=== PATIENT | male | born 1960 | race Caucasian/White ===

== ENCOUNTER 2024-06-06 09:00 | Outpatient (CLI) | payer OTHER, SELFPAY | END 2024-06-06 09:01 | disposition home or self-care (01) | PROVIDERS: PCP Registered Nurse; Visit Provider Registered Nurse | DX: Z13.228 Encounter for screening for other metabolic disorders (principal); Z13.220 Encounter for screening for lipoid disorders; Z12.5 Encounter for screening for malignant neoplasm of prostate | CPT/HCPCS: 80053; 80061; G0103 ==

== ENCOUNTER 2024-09-21 12:41 | Outpatient (CLI) | payer OTHER, SELFPAY ==
--- OUTSIDE RECORDS SUMMARY | 2024-09-21 12:49 | XMS_ITS | Clinical Summary ---
Author Organization [facility] Address [address] , [address] [place] [address] Phone Care Team Providers Care Front Desk Receptionist Name Role Phone MedRec, MedRec Unavailable Conditions or Problems Problem Name Problem Code Onset Date Status Entry Date Provider Comment Standard Description Annotate Neck pain 83620494 (SNOMED CT) Active Suraj Bravo MD Neck pain Ulnar neuropathy, right 487260265 (SNOMED CT) Active Suraj Bravo MD Ulnar neuropathy Other lesions of median nerve, bilateral upper limbs 593826475 (SNOMED CT) Active Suraj Bravo MD Lesion of median nerve Medications No information available. Medications Administered No information available. Allergies, Adverse Reactions, Alerts No information available. Results Date Name Value Unit Range Flag Description Internal Other: Authorizatio n - OBS [email or web address] Yes Authoriza tion: Release of Information - Authorize [facility] - Payment and Healthcare Operations ROIAUTHOTHER Yes Authoriz ation: Release of Information - Authorize Others/Insurance - Payment and Healthcare Operations HIECONSENT Yes Consent To Release information to the Health Information Exchange (HIE) [email or web address] Yes Authorizat ion: Authorization for [facility] to leave messages, voicemail, send text messages, send emails AUTHRELHCARE Yes Authoriz ation: Release/Retrieval of Information to/from Healthcare Facilities, Pharmacy Benefit Payers and Providers [email or web address] Yes Authoriz ation: Notice of privacy practices AUTHBENEFIT Yes Authoriza tion: Assignment of Benefits and Payment Agreement Internal Other: Verbal Autho rization/Emergency Contact - OBS VERBAL_EMER DONE Verbal au thorization and emergency contact Plan of Care No information available. Procedures Code Procedure Name Date Entry Date CPT-34355 Nerve Conduction 13 or more studies 12/02 CPT-31046 EMG with NCS (5+ muscles) - 2 limbs 12/02 Vital Signs No information available. Immunizations No information available. Advance Directives No information available.
--- OUTSIDE RECORDS SUMMARY | 2024-09-21 12:50 | XMS_ITS | Clinical Summary ---
Author Organization [facility] Address [address] [place] [address] Care Team Providers Care Custodian Manager Name Role Phone Carla Heller NP Unavailable [phone] Carla Heller NP Primary Care Provider Allergies Active Allergy Reactions Criticality Noted Date Comments Nsaids (Non-Steroidal Anti-I nflammatory Drug) GI Upset 02/17/2011 Medications multivitamin (MVI) tablet Take 1 tablet by mouth once daily. 0 3 Active ketoconazole 2% topical (NIZORAL) creamIndications: Seborrhea Apply topically to affected area(s) two times daily. 60 g 3 Active betamethasone dipropionate 0.05% (DIPROSONE 0.05% CREAM) 0.05 % creamIndications: Chronic eczema APPLY TOPICALLY TO THE AFFECTED AREA TWICE DAILY 45 g 4 3 Active triamcinolone (ARISTOCORT; KENALOG) 0.1 % creamIndications: Seborrhea Apply topically to affected area(s) two times daily. 4 Active albuterol HFA (Ventolin HFA) 90 mcg/actuation inhalerIndication s:SOB (shortness of breath) Inhale 2 Puffs by mouth every 4 hours if needed for Shortness Of Breath. 1 Each 4 Active sertraline (ZOLOFT) 100 mg tabletIndications :Anxiety,Depressi on, unspecified depression type TAKE 1 TABLET EVERY DAY 90 Tablet 5 Active Active Problems Problem Noted Date Diagnosed Date Mechanical low back pain 04/15/2023 Neuralgia 04/15/2023 Depression 04/15/2023 Arthritis of carpometacarpal (CMC) joint of left thumb 11/08/2022 Status post total left knee replacement 09/08/19 17 Hypermetropia 04/19/2012 Crohn's disease Overview (08/26/2017): 7 surgerys on colon large intestine removed and some of small intestine used when colostomy was taken down Resolved Problems Problem Noted Date Diagnosed Date Resolved Date Avascular necrosis of bone of ankle 04/15/2023 04/15/2023 Primary osteoarthritis of left knee 04/15/2023 04/15/2023 Hemorrhoids, external 04/15/20232023 Closed fracture of triquetra l (cuneiform) bone of wrist 04/15/2023 04/15/2023 Aseptic necrosis of medial femoral condyle 04/15/2023 04/15/2023 S/P right carpal tunnel and cubital tunnel release - DOS 01/26/2023 - Dr. Britt 03/14/2023 S/P left cubital and carpal tunnel release - DOS 12/29/2022 - Dr. Britt 02/21/2023 04/15/2023 Left carpal tunnel syndrome 12/20/2022 04/15/2023 Cubital tunnel syndrome on left 12/20/2022 04/15/2023 Right carpal tunnel syndrome 12/20/2022 04/15/2023 Cubital tunnel syndrome on right 12/20/2022 04/15/2023 Bilateral carpal tunnel syndrome 11/08/2022 04/15/2023 Diarrhea due to malabsorption 08/31/2017 04/15/2023 Pouchitis 08/31/2017 04/15/2023 Aftercare following left kne e joint replacement surgery 01/15/2015 04/15/2023 Encounters Date Type Department Care Team Description 09/21/2024 1:00 PM CDT Ancillary Procedure [facility] [address] [place] [address] Arrived from Last 3 Months Immunizations Immunization Administration Dates Next Due COVID-19 vaccine (Pfizer-Bio NTech 30mcg/0.3mL) 12YO+ ANA CRISTINA-SUCROSE PF, MDV 05/19/2021 Influenza, IIV3 (Age >=3 years) 02/19/2008 Td, Preservative Free (age >= 7 Years) 7 Tdap 02/06/2024,01/06/2007 Varicella Vaccine 09/18/2018 Family History Medical History Relation Name Comments Osteoarthritis Father Cancer Maternal Grandfather Osteoarthritis Mother Diabetes Paternal Grandfather Cancer Paternal Grandmother uterine Relation Name Status Comments Brother Alive Daughter Alive Father Alive Maternal Grandfather Maternal Grandmother Mother Alive Paternal Grandfather Paternal Grandmother Sister Alive Son Alive Social History Tobacco Use Types Packs/Day Years Used Date Smoking Tobacco: Former Cigarettes Q uit: 03/28/1985 Smokeless Tobacco: Never Tobacco Cessation:Counseling Given: Yes Alcohol Use Standard Drinks/Week Comments Yes 2 (1 standard drink = 0.6 oz pur e alcohol) 6 per week PHQ-2 Answer Date Recorded PHQ-2 TOTAL SCORE 0 04/15/2023 Social Connections Answer Date Recorded Frequency of Communication with Friends and Fami ly Not on file 03/28/2021 Financial Resource Strain Answer Date R ecorded Difficulty of Paying Living Expenses Not on file 03/28/2021 Difficulty of Paying Living Expenses Not on file 03/28/2021 Sex and Gender Information Value Date Recorded Sex Assigned at Male 05/14/2020 10:55 AM OFFICE SERVICES CLERK Legal Sex Male 8:16 AM OFFICE SERVICES CLERK Gender Identity Male 05/14/2020 10:55 AM OFFICE SERVICES CLERK Sexual Orientation Straight 05/14/2020 10 :55 AM OFFICE SERVICES CLERK 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 Not on file Not on 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 Not on file Not on file Obstetrics History Last Filed Vital Signs Vital Sign Reading Time Taken Comments Blood Pressure 119/58 02/06/2024 12:18 PM OFFICE SERVICES CLERK Pulse 69 02/06/2024 12:18 PM OFFICE SERVICES CLERK Temperature 36.3 C (97.4 F) 02/06/2024 12:18 PM OFFICE SERVICES CLERK Respiratory Rate 18 02/06/2024 12:18 PM OFFICE SERVICES CLERK Oxygen Saturation 96% 02/06/2024 12:18 PM OFFICE SERVICES CLERK Inhaled Oxygen Concentration - - Weight 97.1 kg (214 lb) 02/06/2024 12:18 PM OFFICE SERVICES CLERK Height 190.5 cm (6' 3) 04/15/2023 11:18 AM OFFICE SERVICES CLERK Body Mass Index 26.75 04/15/2023 11:18 AM OFFICE SERVICES CLERK Plan of Treatment Upcoming Encounters Date Type Department Care Team (Late st Contact Info) Description 09/21/2024 1:00 PM CDT Ancillary Procedure [facility] [address] [place] [address] Arrived Health Maintenance Due Date Last Done Comments Pneumococcal series for age 50+ (1 of 1 - PCV) 2011 Zoster (shingles) series for age 50+ (1 of 2) 2011 COVID-19 vaccine series ( season) 2023 05/19/2021, 11/20/2020, 10/30/2020 BMI (ht and wt on same day) for age 18+ 04/15/2024 04/15/2023, 12/27/2022, 04/06/2022, Additional history exists Depression screening for age 12+ 04/15/2024 04/15/2023, 04/15/2023, 12/27/2022, Additional history exists Influenza Vaccine (Season Ended) 2024 02/19/2008 Lipids for age 45-75 05/24/2027 05/24/2022, 05/19/2021, 04/01/2020, Additional history exists Tetanus booster 02/05/2034 02/06/2024, 06/0 04/2016, 01/06/2007 RSV vaccine for adults or (1 - 1-dose 75+ series) 2036 Colonoscopy through age 75 Discontinued 07/25 (Completed outside of [facility]) Hepatitis C screening for age 18-79 Completed 04/01/2020 HIV for age 15-65 Completed 05/24/2022 Tdap Completed 02/06/2024, 01/06/2007 Hepatitis B series for 19+ Aged Out N o longer eligible based on patient's age to complete this topic Medical Devices Implanted Type Area Chrome Plater Helper Device Identifier Shelf Expiration Date Model / Serial / Lot Cement Simplex W/ Tobramycin - [id number] Implanted:Qty: 2 on 01/15/2015 by Shankar Persaud MD at [facility] Left: Knee D-VANNESSA 01/26/2016 [id number] / / [id number] - [id number] Implanted:Qty: 1 on 01/15/2015 by Shankar Persaud MD at [facility] Left: Knee [employer] 06/25/2024 [id number] / / [id number] Description:Mark Nonporou s Tibial Baseplate [id number] - [id number] Implanted:Qty: 1 on 01/15/2015 by Shankar Persaud MD at [facility] Left: Knee [employer] 05/25/2024 [id number] / / [id number] Description:Hca II Resur facing Patellar Component [id number] - [id number] Implanted:Qty: 1 on 01/15/2015 by Shankar Persaud MD at [facility] Left: Knee [employer] 12/26/2023 [id number] / / [id number] Description:Cruciate Retaini ng Journey II CR Oxinium Femoral Component [id number] - [id number] Implanted:Qty: 1 on 01/15/2015 by Shankar Persaud MD at [facility] Left: Knee [employer] 07/26/2023 [id number] / / [id number] Description:Journay II CR, X LPE A/P 56mm M/L 81mm articular insert 1/2 Tibial Augment And Screws Cemented Implanted:Qty: 1 on 09/07/2016 by José Parekh MD at [facility] Left: Knee [employer] 03/30/2020 / / [id number] 1/2 Tibial Augment And Screws Cemented Implanted:Qty: 1 on 09/07/2016 by José Parekh MD at [facility] Left: Knee [employer] 03/30/2020 / / [id number] Stem Extension Straight Femoral And Tibial Cemented Implanted:Qty: 1 on 09/07/2016 by José Parekh MD at [facility] Left: Knee [employer] 03/29/2020 / / [id number] Stem Extension Straight And Tibial Cemented Implanted:Qty: 1 on 09/07/2016 by José Parekh MD at [facility] Left: Knee [employer] 07/12/2021 / / [id number] Femoral Component And Screw Constrained Condylar Cemented Implanted:Qty: 1 on 09/07/2016 by Joés Parekh MD at [facility] Left: Knee [employer] 12/14/2020 / / [id number] Femoral Augment And Screw Implanted:Qty: 1 on 09/07/2016 by José Parekh MD at [facility] Left: Knee [employer] 03/23/2020 / / [id number] Femoral Augment And Screw Posterior Cemented Implanted:Qty: 1 on 09/07/2016 by José Parekh MD at [facility] Left: Knee [employer] 03/23/2020 / / [id number] Femoral Aug Block And Screw Distal Cemented Implanted:Qty: 1 on 09/07/2016 by José Parekh MD at [facility] Left: Knee [employer] 07/23/2021 / / [id number] Femoral Aug Block And Screw Implanted:Qty: 1 on 09/07/2016 by José Parekh MD at [facility] Left: Knee [employer] 06/03/2020 / / [id number] Tibial Insert And Screw Constrained Condylar Implanted:Qty: 1 on 09/07/2016 by José Parekh MD at [facility] Left: Knee [employer] 04/04/2023 / / [id number] Simplex P Bone Cement Radiopaque Implanted:Qty: 1 on 09/07/2016 by José Parekh MD at [facility] Left: Knee [employer] 03/27/2018 / / [id number] Peg Patella Cemented Implanted:Qty: 1 on 09/07/2016 by José Parekh MD at [facility] Left: Knee [employer] 07/19/2021 / / [id number] Simplex P Bone Cement Radiopaque Implanted:Qty: 2 on 09/07/2016 by José Parekh MD at [facility] Left: Knee [employer] 05/25/2018 / / [id number] Simplex P Bone Cement Radiopaque Implanted:Qty: 2 on 09/07/2016 by José Parekh MD at [facility] Left: Knee [employer] 11/25/2018 / / [id number] Tibial Cone Metaphyseal Implanted:Qty: 1 on 09/07/2016 by José Parekh MD at [facility] Left: Knee [employer] 05/22/2026 / / [id number] Tibial Tray Cemented Implanted:Qty: 1 on 09/07/2016 by José Parekh MD at [facility] Left: Knee [employer] 05/26/2026 / / [id number] Explanted Type Area Chrome Plater Helper Device Identifier Shelf Expiration Date Model / Serial / Lot Tibial Insert And Screw Constrained Condylar Implanted:Qty: 1 Explanted:Qty: 1 on 09/07/2016 at [facility] Left: Knee [employer] 04/04/2023 / / [id number] Procedures Procedure Name Priority Date/Time Associated Diagnosis Comments LC HIV-1/O/2, 4TH GENERATION Routine 05/24/2022 9:44 AM OFFICE SERVICES CLERK Screening for HIV (human immunodeficiency virus) LC LIPID PANEL AND CHOL/HDL RATIO Routine 05/24/2022 9:44 AM OFFICE SERVICES CLERK Lipid screening ANTI HCV Routine 04/01/2020 12:01 PM OFFICE SERVICES CLERK Encounter for hepatitis C screening test for low risk patient from Last 3 Months or Most Recently Relevant to Health Maintenance Results * (ABNORMAL) LC LIPID PANEL AND CHOL/HDL RATIO (05/24/2022 9:44 AM OFFICE SERVICES CLERK) Cholesterol, Total 216(H) 100 - 199 mg/dL 05/26/2022 12:08 PM OFFICE SERVICES CLERK [facility] ([facility]) Triglycerides 111 0 - 149 mg/dL 05/26/2022 12:08 PM OFFICE SERVICES CLERK [facility] ([facility]) HDL Cholesterol 63 >39 mg/dL 12:08 PM [facility] ([facility]) VLDL Cholesterol Shashi 20 5 - 40 mg/dL 05/26/2022 12:08 PM [facility] ([facility]) LDL Chol Calc ([facility]) 133(H) 0 - 99 mg/dL 05/26/2022 12:08 PM [facility] ([facility]) T. Chol/HDL Ratio 3.4 0.0 - 5.0 ratio 05/26/2022 12:08 PM [facility] ([facility]) Comment: T. Chol/HDL Ratio Men Women 1/2 Avg.Risk 3.4 3.3 Avg.Risk 5.0 4.4 2X Avg.Risk 9.6 7.1 3X Avg.Risk 23.4 11.0 Blood BLOOD SPECIMEN / Unknown Venipuncture / Unknown 05/24/2022 9:44 AM OFFICE SERVICES CLERK 05/24/2022 9:46 AM OFFICE SERVICES CLERK Narrative [facility] ([facility]) - 05/26/2022 12:08 PM OFFICE SERVICES CLERK Performed at: [address] [place] [id number] French Teacher: Rakesh Milligan MD, Phone: [phone] Carla Heller NP SEND OUTS Final Result [facility] ([facility]) [facility] [place] [address], * HIV-1/O/2, 4TH GENERATION (05/24/2022 9:44 AM OFFICE SERVICES CLERK) HIV Scr 4th Gen Non Reactive Non Reactive 05/26/2022 2:08 PM [facility] ([facility]) Comment: HIV Negative HIV-1/HIV-2 antibodies and HIV-1 p24 antigen were NOT detected. There is no laboratory evidence of HIV infection. Blood BLOOD SPECIMEN / Unknown Venipuncture / Unknown 05/24/2022 9:44 AM OFFICE SERVICES CLERK 05/24/2022 9:46 AM OFFICE SERVICES CLERK [facility]ative [facility] - 05/26/2022 2:08 PM OFFICE SERVICES CLERK Performed at: [address] [place] [id number] French Teacher: Rakesh Milligan MD, Phone: [phone] Carla Heller DISBURSING AGENT LABORATORY Final Result [facility] ([facility]) [facility] [place] [address], * ANTI HCV (04/01/2020 12:01 PM OFFICE SERVICES CLERK) HEPATITIS C ANTIBODY Non-React laura Non-React laura 04/01/2020 9:01 PM OFFICE SERVICES CLERK [facility] Comment:Antibodies to HCV no t detected; does not exclude the possibility of exposure to HCV. Blood BLOOD SPECIMEN / Unknown Venipuncture / Unknown 04/01/2020 12:01 PM OFFICE SERVICES CLERK 04/01/2020 12:04 PM OFFICE SERVICES CLERK Carla Heller DISBURSING AGENT SEND OUTS Final Result [facility] [address] [place] [address], [place] from Last 3 Months or Most Recently Relevant to Health Maintenance Insurance [facility] [employer] OF [place] [employer] GOLD CHOICE MR * Guarantor: REUBEN NEGRON Account Type Relation to Patient Date of Phone Billing Address [address] [address] [place] [address] Advance Directives Documents on File Type Date Recorded Patient Phthalic Acid Purifier Expl anation Healthcare Directive 01/23/2024 024 * Full Code (Latest Code Status on File) Date Activated Date Inactivated Comments 01/26/2023 6:28 AM 01/26/2023 1:31 PM Question Answer Comments Code Status Discussion: Reviewed Preferences * Full Code Date Activated Date Inactivated Comments 12/29/2022 6:29 AM 12/29/2022 2:42 PM Question Answer Comments Code Status Discussion: Reviewed Preferences * Full Code Date Activated Date Inactivated Comments 09/07/2016 2:03 PM 09/10/2016 2:25 PM * Full Code Date Activated Date Inactivated Comments 09/07/2016 7:48 AM 09/07/2016 2:03 PM * Full Code Date Activated Date Inactivated Comments 01/15/2015 9:44 AM 01/17/2015 4:57 PM Care Teams Custodian Manager Relationship Specialty Start Date End Date Carla Heller NP [address] [place] [address] PCP - General Nurse Practitioner - Family 03/26/20 Carla Heller NP [address] [facility] [place] [address] Family Practice 04/14/12
--- OUTSIDE RECORDS SUMMARY | 2024-09-21 12:58 | XMS_ITS | Clinical Summary ---
Author Organization [facility] Address [address] , [address] [place] [address] Phone Care Team Providers Care Asphalt Patcher Name Role Phone MedRec, MedRec Unavailable Conditions or Problems Problem Name Problem Code Onset Date Status Entry Date Provider Comment Standard Description Annotate Neck pain 38685648 (SNOMED CT) Active Suraj Bravo MD Neck pain Ulnar neuropathy, right 771383917 (SNOMED CT) Active Suraj Bravo MD Ulnar neuropathy Other lesions of median nerve, bilateral upper limbs 248633470 (SNOMED CT) Active Suraj Bravo MD Lesion [...] Procedures Code Procedure Name Date Entry Date CPT-40185 Nerve Conduction 13 or more studies 12/02 CPT-81632 EMG with NCS (5+ muscles) - 2 limbs 12/02 Vital Signs No information available. Immunizations No information available. Advance Directives No information available.
--- OUTSIDE RECORDS SUMMARY | 2024-09-21 14:05 | XMS_ITS | Clinical Summary ---
Author Organization [facility] Address [address] [facility] [facility] , [address] [place] [address] Phone Care Team Providers Care Senior Environmental Scientist Name Role Phone MedRec, MedRec Unavailable Conditions or Problems Problem Name Problem Code Onset Date Status Entry Date Provider Comment Standard Description Annotate Neck pain 09800093 (SNOMED CT) Active Suraj Bravo MD Neck pain Ulnar neuropathy, right 820825619 (SNOMED CT) Active Suraj Bravo MD Ulnar neuropathy Other lesions of median nerve, bilateral upper limbs 250011554 (SNOMED CT) Active Suraj Bravo MD Lesion [...] Procedures Code Procedure Name Date Entry Date CPT-25002 Nerve Conduction 13 or more studies 12/02 CPT-69677 EMG with NCS (5+ muscles) - 2 limbs 12/02 Vital Signs No information available. Immunizations No information available. Advance Directives No information available.
--- OUTSIDE RECORDS SUMMARY | 2024-09-22 00:24 | XMS_ITS | Clinical Summary ---
Author Organization [facility] Address [address] [facility] , [address] [place] [address] Phone Care Team Providers Care Flyer Maker Name Role Phone MedRec, MedRec Unavailable Conditions or Problems Problem Name Problem Code Onset Date Status Entry Date Provider Comment Standard Description Annotate Neck pain 82029440 (SNOMED CT) Active Suraj Bravo MD Neck pain Ulnar neuropathy, right 749369646 (SNOMED CT) Active Suraj Bravo MD Ulnar neuropathy Other lesions of median nerve, bilateral upper limbs 208607569 (SNOMED CT) Active Suraj Bravo MD Lesion [...] Procedures Code Procedure Name Date Entry Date CPT-88305 Nerve Conduction 13 or more studies 12/02 CPT-14936 EMG with NCS (5+ muscles) - 2 limbs 12/02 Vital Signs No information available. Immunizations No information available. Advance Directives No information available.
--- OUTSIDE RECORDS SUMMARY | 2024-09-22 00:25 | XMS_ITS | Clinical Summary ---
Author Organization [facility] Address [address] [place] [id number] Care Team Providers Care Warehousing Technician Name Role Phone Carla Heller NP Unavailable [phone] Carla Heller NP Primary Care Provider [phone] Allergies Active Allergy Reactions Criticality Noted Date [...] Description 09/21/2024 1:00 PM CDT Ancillary Procedure [facility] [address] [place] [address] Arrived from Last 3 Months Immunizations Immunization [...] Sex Assigned at Male 05/14/2020 10:55 AM CUSTOMER SERVICE ANALYST Legal Sex Male 8:16 AM CUSTOMER SERVICE ANALYST Gender Identity Male 05/14/2020 10:55 AM CUSTOMER SERVICE ANALYST Sexual Orientation Straight 05/14/2020 10 :55 AM CUSTOMER SERVICE ANALYST 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 Not on file Not on 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 Not on file Not on file Obstetrics History Last Filed Vital Signs Vital Sign Reading Time Taken Comments Blood Pressure 119/58 02/06/2024 12:18 PM CUSTOMER SERVICE ANALYST Pulse 69 02/06/2024 12:18 PM CUSTOMER SERVICE ANALYST Temperature 36.3 C (97.4 F) 02/06/2024 12:18 PM CUSTOMER SERVICE ANALYST Respiratory Rate 18 02/06/2024 12:18 PM CUSTOMER SERVICE ANALYST Oxygen Saturation 96% 02/06/2024 12:18 PM CUSTOMER SERVICE ANALYST Inhaled Oxygen Concentration - - Weight 97.1 kg (214 lb) 02/06/2024 12:18 PM CUSTOMER SERVICE ANALYST Height 190.5 cm (6' 3) 04/15/2023 11:18 AM CUSTOMER SERVICE ANALYST Body Mass Index 26.75 04/15/2023 11:18 AM CUSTOMER SERVICE ANALYST Plan of Treatment Health Maintenance Due Date Last Done Comments [...] age 76 Discontinued 07/25 ([facility]) Hepatitis C screening for age 18-79 Completed 04/01/2020 HIV for age 15-65 Completed 05/24/2022 Tdap Completed 02/06/2024, 01/06/2007 Hepatitis B series for 19+ Aged Out N o longer eligible based on patient's age to complete this topic Medical Devices Implanted Type Area Plant Anatomist Device Identifier Shelf Expiration Date Model / Serial / Lot Cement Simplex W/ Tobramycin - [id number] Implanted:Qty: 2 on 01/15/2015 by Shankar Persaud MD at [facility] Left: Knee D-VANNESSA 01/26/2016 6197-9-010 / / [id number] - [id number] Implanted:Qty: 1 on 01/15/2015 by Shankar Persaud MD at [facility] Left: Knee [employer] 06/25/2024 [id number] / / [id number] Description:Cindydagmar Nonporou s Tibial Baseplate [id number] - [id number] Implanted:Qty: 1 on 01/15/2015 by Shankar Perasud MD at [facility] Left: Knee [employer] 05/25/2024 [id number] / / [id number] Description:Cha II Resur facing Patellar Component [id number] - [id number] Implanted:Qty: 1 on 01/15/2015 by Shankar Persaud MD at [facility] Left: Knee [employer] 12/26/2023 [id number] / / [id number] Description:Cruciate Retaini ng Journey II CR Oxinium Femoral Component [id number] - [id number] Implanted:Qty: 1 on 01/15/2015 by Shankar Persaud MD at [facility] Left: Knee [employer] 07/26/2023 [id number] / / [id number] Description:Journay II CR, X LPE A/P 56mm M/L 81mm articular insert 1/2 Tibial Augment And Screws Cemented Implanted:Qty: 1 on 09/07/2016 by José Parekh MD at [facility] Left: Knee [employer] 03/30/2020 / / [id number] 1/2 Tibial Augment And Screws Cemented Implanted:Qty: 1 on 09/07/2016 by José Parekh MD at [facility] Left: Knee [employer] 03/30/2020 / / [id number] Stem Extension Straight Femoral And Tibial Cemented Implanted:Qty: 1 on 09/07/2016 by José Parekh MD at [facility] Left: Knee [employer] 03/29/2020 / / [id number] Stem Extension Straight And Tibial Cemented Implanted:Qty: 1 on 09/07/2016 by José Parekh MD at [facility] Left: Knee [employer] 07/12/2021 / / [id number] Femoral Component And Screw Constrained Condylar Cemented Implanted:Qty: 1 on 09/07/2016 by José Parekh MD at [facility] Left: Knee [employer] 12/14/2020 / / [id number] Femoral Augment And Screw Implanted:Qty: 1 on 09/07/2016 by José Parekh MD at [facility] Left: Knee [employer] 03/23/2020 / / [id number] Femoral Augment And Screw Posterior Cemented Implanted:Qty: 1 on 09/07/2016 by José Parekh MD at [facility] Left: Knee [employer] 03/23/2020 / / [id number] Femoral Aug Block And Screw Distal Cemented Implanted:Qty: 1 on 09/07/2016 by José Parekh MD at [facility] Left: Knee [employer] 07/23/2021 / / [id number] Femoral Aug Block And Screw Implanted:Qty: 1 on 09/07/2016 by José Parekh MD at [facility] Left: Knee [employer] 06/03/2020 / / [id number] Tibial Insert And Screw Constrained Condylar Implanted:Qty: 1 on 09/07/2016 by José Parekh MD at [facility] Left: Knee [employer] 04/04/2023 / / [id number] Simplex P Bone Cement Radiopaque Implanted:Qty: 1 on 09/07/2016 by José Parekh MD at [facility] Left: Knee [employer] 03/27/2018 / / [id number] Peg Patella Cemented Implanted:Qty: 1 on 09/07/2016 by José Parekh MD at [facility] Left: Knee [employer] 07/19/2021 / / [id number] Simplex P Bone Cement Radiopaque Implanted:Qty: 2 on 09/07/2016 by José Parekh MD at [facility] Left: Knee [employer] 05/25/2018 / / [id number] Simplex P Bone Cement Radiopaque Implanted:Qty: 2 on 09/07/2016 by José Parekh MD at [facility] Left: Knee [employer] 11/25/2018 / / [id number] Tibial Cone Metaphyseal Implanted:Qty: 1 on 09/07/2016 by José Parekh MD at [facility] Left: Knee [employer] 05/22/2026 / / [id number] Tibial Tray Cemented Implanted:Qty: 1 on 09/07/2016 by José Parekh MD at [facility] Left: Knee [employer] 05/26/2026 / / [id number] Explanted Type Area Plant Anatomist Device Identifier Shelf Expiration Date Model / Serial / Lot Tibial Insert And Screw Constrained Condylar Implanted:Qty: 1 Explanted:Qty: 1 on 09/07/2016 at [facility] Left: Knee [employer] 04/04/2023 / / [id number] Procedures Procedure Name Priority Date/Time Associated Diagnosis Comments ECHO TTE COMPLETE WO CONTRAST Routine 09/21/2024 1:40 PM CDT Cardiac murmur, unspecified LC HIV-1/O/2, 4TH GENERATION Routine 05/24/2022 9:44 AM CUSTOMER SERVICE ANALYST Screening for HIV (human immunodeficiency virus) LC LIPID PANEL AND CHOL/HDL RATIO Routine 05/24/2022 9:44 AM CUSTOMER SERVICE ANALYST Lipid screening ANTI HCV Routine 04/01/2020 12:01 PM CUSTOMER SERVICE ANALYST Encounter for hepatitis C screening test for low risk patient from Last 3 Months or Most Recently Relevant to Health Maintenance Results * ECHO TTE COMPLETE WO CONTRAST (09/21/2024 1:40 PM CDT) AORTIC VALVE MEAN PG 12 mmHg EJECTION FRACTION 75 % PEAK TR VELOCITY 2.5 m/s LVEDD 5.4 cm EJECTION FRACTION 60 - 65% Anatomical Region Laterality Modality Ultrasound 09/21/2024 12:5 2 PM CDT Narrative 09/21/2024 2:16 PM CDT ECHOCARDIOGRAM GROVER BENITEZ : 1960 64 years Study Date: 09/21/2024 12:52:49 PM Gender: M BP: 132/69 mmHg Height: 196.00 cm BSA: 2.31 m Weight: 98.00 kg Tech: DEXTER Referring MD: DULCE REMY Site: [facility] Reading Location: Mobile-OP Patient Location: Outpatient. Procedure: 2D, Color Doppler and Spectral Doppler. Indication for study: Murmur Cardiac Rhythm: Regular.Study quality: Fair. Imaging limitations: This study was subject to imaging limitations due to body habitus and a prominent lung artifact. Final Impressions: 1. Normal LV size, normal wall thickness, normal function with an estimated EF of 60 - 65%. 2. Right ventricular cavity size is normal, global systolic RV function is normal. 3. The aortic valve is probably bicuspid, no stenosis and moderate to severe regurgitation. Eccentric jet. 4. Mildly dilated ascending aorta, diameter of 4.3 cm (upper limit of normal for age, sex, and BSA is 4.2 cm*), Height Index 2.19. Comparison There are no prior studies on this patient for comparison purposes. Chamber Sizes and Function Normal left ventricular size, normal wall thickness, normal global systolic function with an estimated EF of 60 - 65%. No resting regional wall motion abnormality visualized. Left atrial size is normal. Right ventricular cavity size is normal, global systolic RV function is normal. The right atrium is normal. Right atrial volume index is 26 ml/m . Right atrial area is 20 cm . The pulmonary artery is not well visualized. The sinus of Valsalva is normal sized. The ascending aorta is dilated. Valves, RV Pressures and Diastolic Function The aortic valve is probably bicuspid, no stenosis and moderate to severe regurgitation. The mitral valve is normal in structure, trace mitral regurgitation. Indeterminate pattern of LV diastolic filling. The tricuspid valve is normal in structure, trace tricuspid regurgitation. The tricuspid regurgitant velocity is 2.5 m/s, the estimated right ventricular systolic pressure is 26 mmHg plus right atrial pressure. The pulmonic valve is not well visualized. Trace pulmonary regurgitation. Masses, Effusion, Shunts There is no pericardial effusion. The inferior vena cava is dilated, respiratory size variation greater than 50%. No left to right shunting was detected by limited color flow Doppler interrogation of the interatrial septum. MEASUREMENTS AND CALCULATIONS 2-D Measurements and LV Function: LVID (d) 5.4 cm LV FS% (2D) 37 % LVID (s) 3.4 cm LVOT diameter 2.6 cm IVS (d) 1.0 cm HR 60 bpm LVPW (d) 1.1 cm LA Vol index 22 ml/m2 Ao Sinus 3.5 cm RA Vol index 26 ml/m2 Ao Sinus ULN 4.2 cm * RA area 20 cm Asc Ao 4.3 cm RV Basal Diam 3.9 cm Asc Ao ULN 4.2 cm * RV Mid Diam 2.4 cm LA 3.8 cm * Input BSA outside of range, reported values correspond to BSA = 2.1 Diastology: Mitral Tissue Doppler E Peak 0.9 m/s e', Septum 0.16 m/s A Peak 0.7 m/s e', Lateral 0.11 m/s E/A 1.4 E/e' Average 6.85 DT 279 msec Aortic Valve: Vmax 2.4 m/s MICHAEL (V) 2.87 cm AI P 1/2 329 msec VTI 0.54 m MICHAEL (I) 2.89 cm LVOT V max 1.3 m/s Max PG 23 mmHg LVOT VTI 0.29 m Mean PG 12 mmHg SV 156 ml Dim Index 0.54 SV index 67 ml/m CO 9.3 l/min CI 4.0 l/min/m Mitral Valve: MVA 2.7 cm MV P 1/2 81 msec Tricuspid Valve and estimated PA pressures: TR Vmax 2.5 m/s TAPSE 3.3 cm TR maxG 26 mmHg . This study was interpreted by an [facility] accredited facility. CC: [facility] (formerly [facility]) [facility]. Final Procedure Note Wan Sneed MD - 09/21/2024 ECHOCARDIOGRAM GROVER BENITEZ : 1960 64 years Study Date: 09/21/2024 12:52:49 PM Gender: M BP: 132/69 mmHg Height: 196.00 cm BSA: 2.31 m Weight: 98.00 kg Tech: [facility] Referring MD: DULCE REMY Site: [facility] Reading Location: Mobile-OP Patient Location: Outpatient. Procedure: 2D, Color Doppler and Spectral Doppler. Indication for study: Murmur Cardiac Rhythm: Regular.Study quality: Fair. Imaging limitations: This study was subject to imaging limitations due tobody habitus and a prominent lung artifact. Final Impressions: 1. Normal LV size, normal wall thickness, normal function with anestimated EF of 60 - 65%. 2. Right ventricular cavity size is normal, global systolic RV functionis normal. 3. The aortic valve is probably bicuspid, no stenosis and moderate tosevere regurgitation. Eccentric jet. 4. Mildly dilated ascending aorta, diameter of 4.3 cm (upper limit ofnormal for age, sex, and BSA is 4.2 cm*), Height Index 2.19. Comparison There are no prior studies on this patient for comparison purposes. Chamber Sizes and Function Normal left ventricular size, normal wall thickness, normal globalsystolic function with an estimated EF of 60 - 65%. No resting regionalwall motion abnormality visualized. Left atrial size is normal. Rightventricular cavity size is normal, global systolic RV function is normal.The right atrium is normal. Right atrial volume index is 26 ml/m . Rightatrial area is 20 cm . The pulmonary artery is not well visualized. Thesinus of Valsalva is normal sized. The ascending aorta is dilated. Valves, RV Pressures and Diastolic Function The aortic valve is probably bicuspid, no stenosis and moderate to severeregurgitation. The mitral valve is normal in structure, trace mitralregurgitation. Indeterminate pattern of LV diastolic filling. Thetricuspid valve is normal in structure, trace tricuspid regurgitation. Thetricuspid regurgitant velocity is 2.5 m/s, the estimated right ventricularsystolic pressure is 26 mmHg plus right atrial pressure. The pulmonicvalve is not well visualized. Trace pulmonary regurgitation. Masses, Effusion, Shunts There is no pericardial effusion. The inferior vena cava is dilated,respiratory size variation greater than 50%. No left to right shunting wasdetected by limited color flow Doppler interrogation of the interatrialseptum. MEASUREMENTS AND CALCULATIONS 2-D Measurements and LV Function: LVID (d) 5.4 cm LV FS% (2D) 37% LVID (s) 3.4 cm LVOT diameter2.6 cm IVS (d) 1.0 cm HR 60bpm LVPW (d) 1.1 cm LA Vol index 22ml/m2 Ao Sinus 3.5 cm RA Vol index 26ml/m2 Ao Sinus ULN 4.2 cm * RA area 20cm Asc Ao 4.3 cm RV Basal Diam3.9 cm Asc Ao ULN 4.2 cm * RV Mid Diam2.4 cm LA 3.8 cm * Input BSA outside of range, reported values correspond to BSA = 2.1 Diastology: Mitral Tissue Doppler E Peak 0.9 m/s e', Septum 0.16 m/s A Peak 0.7 m/s e', Lateral 0.11 m/s E/A 1.4 E/e' Average 6.85 DT 279 msec Aortic Valve: Vmax 2.4 m/s MICHAEL (V) 2.87 cm AI P 1/2 329 msec VTI 0.54 m MICHAEL (I) 2.89 cm LVOT V max 1.3 m/s Max PG 23 mmHg LVOT VTI 0.29 m Mean PG 12 mmHg SV 156 ml Dim Index 0.54 SV index 67 ml/m CO 9.3 l/min CI 4.0 l/min/m Mitral Valve: MVA 2.7 cm MV P 1/2 81 msec Tricuspid Valve and estimated PA pressures: TR Vmax 2.5 m/s TAPSE 3.3 cm TR maxG 26 mmHg . This study was interpreted by an [facility] accredited facility. CC: [facility] ([facility]) [facility]. Final Dulce Remy PHOTOGRAPHIC DEVELOPER AND PRINTER ECHO ORD F inal Result * (ABNORMAL) LC LIPID PANEL AND CHOL/HDL RATIO (05/24/2022 9:44 AM CUSTOMER SERVICE ANALYST) [facility] Cholesterol, Total 216(H) 100 - 199 mg/dL 05/26/2022 12:08 PM CUSTOMER SERVICE ANALYST [facility] Triglycerides 111 0 - 149 mg/dL 05/26/2022 12:08 PM CUSTOMER SERVICE ANALYST [facility] HDL Cholesterol 63 >39 mg/dL 12:08 PM CUSTOMER SERVICE ANALYST [facility] VLDL Cholesterol Shashi 20 5 - 40 mg/dL 05/26/2022 12:08 PM [facility] ([facility]) LDL Chol Calc ([facility]) 133(H) 0 - 99 mg/dL 05/26/2022 12:08 PM [facility] ([facility]) T. Chol/HDL Ratio 3.4 0.0 - 5.0 ratio 05/26/2022 12:08 PM [facility] ([facility]) Comment: T. Chol/HDL Ratio Men Women 1/2 Avg.Risk 3.4 3.3 Avg.Risk 5.0 4.4 2X Avg.Risk 9.6 7.1 3X Avg.Risk 23.4 11.0 Blood BLOOD SPECIMEN / Unknown Venipuncture / Unknown 05/24/2022 9:44 AM CUSTOMER SERVICE ANALYST 05/24/2022 9:46 AM CUSTOMER SERVICE ANALYST Narrative [facility] ([facility]) - 05/26/2022 12:08 PM CUSTOMER SERVICE ANALYST Performed at: [address] [place] [address] [place] [id number] Hand Bulldozer: Rakesh Milligan MD, Phone: [phone] Carla Heller NP SEND OUTS Final Result [facility] ([facility]) [facility] [place] [address], * LC HIV-1/O/2, 4TH GENERATION (05/24/2022 9:44 AM CUSTOMER SERVICE ANALYST) HIV Scr 4th Gen Non Reactive Non Reactive 05/26/2022 2:08 PM [facility] ([facility]) Comment: HIV Negative HIV-1/HIV-2 antibodies and HIV-1 p24 antigen were NOT detected. There is no laboratory evidence of HIV infection. Blood BLOOD SPECIMEN / Unknown Venipuncture / Unknown 05/24/2022 9:44 AM CUSTOMER SERVICE ANALYST 05/24/2022 9:46 AM CUSTOMER SERVICE ANALYST Narrative [facility] - 05/26/2022 2:08 PM CUSTOMER SERVICE ANALYST Performed at: [address] [place] [id number] Hand Bulldozer: Rakesh Milligan MD, Phone: [phone] Carla Heller NP LABORATORY Final Result Performing Organization Address City/[facility]/ZIP Co de Phone Number [facility] ([facility]) [address] [place] [id number] * ANTI HCV (04/01/2020 12:01 PM CUSTOMER SERVICE ANALYST) HEPATITIS C ANTIBODY Non-React laura Non-React laura 04/01/2020 9:01 PM CUSTOMER SERVICE ANALYST [facility] Comment:Antibodies to HCV no t detected; does not exclude the possibility of exposure to HCV. Blood BLOOD SPECIMEN / Unknown Venipuncture / Unknown 04/01/2020 12:01 PM CUSTOMER SERVICE ANALYST 04/01/2020 12:04 PM CUSTOMER SERVICE ANALYST Carla Heller PHOTOGRAPHIC DEVELOPER AND PRINTER SEND OUTS Final Result [facility] [address] [place] [address], from Last 3 Months or Most Recently Relevant to Health Maintenance Insurance [facility] [employer] [facility] [place] [employer] G[employer] CHOICE MR * Guarantor: REUBEN NEGRON Account Type Relation to Patient Date of Phone Billing Address [facility] [employer] [id number] [place] [address] Advance Directives Documents on File Type Date Recorded Patient Fall Intern Expl anation Healthcare Directive 01/23/2024 024 * [...] 9:44 AM 01/17/2015 4:57 PM Care Teams Warehousing Technician Relationship Specialty Start Date End Date Carla Heller NP [address] [place] [address] PCP - General Nurse Practitioner - Family 03/26/20 Carla Heller NP [address] [place] [address] Family Practice 04/14/12
== END 2024-09-21 12:42 | disposition home or self-care (01) ==
PROVIDERS: PCP Registered Nurse; Visit Provider Registered Nurse
DX: R01.1 Cardiac murmur, unspecified (principal); I35.1 Nonrheumatic aortic (valve) insufficiency
CPT/HCPCS: 93306

== ENCOUNTER 2024-10-23 11:34 | Emergency (ER) | payer OTHER, SELFPAY ==
[2024-10-23] VITALS (12 sets, daily range): BP systolic 122–137; BP diastolic 65–77; PULSE 56–64; RESP 16–22; TEMP 37; O2SAT 94–99; BMI 25.6
--- OUTSIDE RECORDS SUMMARY | 2024-10-23 11:37 | XMS_ITS | Clinical Summary ---
Author Organization [facility] Address [address] [place] [id number] Care Team Providers Care Financial Services Intern Name Role Phone Carla Heller NP Unavailable Carla Heller NP Primary Care Provider Allergies [...] Description 09/21/2024 1:00 PM CDT Ancillary Procedure [facility] [place] [facility] [address] [place] [address] from Last 3 Months Immunizations Immunization Administration [...] Sex Assigned at Male 05/14/2020 10:55 AM HEEL BLACKER Legal Sex Male 8:16 AM HEEL BLACKER Gender Identity Male 05/14/2020 10:55 AM HEEL BLACKER Sexual Orientation Straight 05/14/2020 10 :55 AM HEEL BLACKER 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 Not on file 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 on 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 Not on file Not on file Obstetrics History Last Filed Vital Signs Vital Sign Reading Time Taken Comments Blood Pressure 119/58 02/06/2024 12:18 PM HEEL BLACKER Pulse 69 02/06/2024 12:18 PM HEEL BLACKER Temperature 36.3 C (97.4 F) 02/06/2024 12:18 PM HEEL BLACKER Respiratory Rate 18 02/06/2024 12:18 PM HEEL BLACKER Oxygen Saturation 96% 02/06/2024 12:18 PM HEEL BLACKER Inhaled Oxygen Concentration - - Weight 97.1 kg (214 lb) 02/06/2024 12:18 PM HEEL BLACKER Height 190.5 cm (6' 3) 04/15/2023 11:18 AM HEEL BLACKER Body Mass Index 26.75 04/15/2023 11:18 AM HEEL BLACKER Plan of Treatment Health Maintenance Due Date [...] 04/15/2023, 12/27/2022, Additional history exists Influenza Vaccine (#1) 2024 02/19/2008 Lipids for age 45-75 05/24/2027 05/24/2022, 05/19/2021, 04/01/2020, Additional history exists Tetanus booster 02/05/2034 02/06/2024, 06/0 04/2016, 01/06/2007 RSV vaccine for adults or (1 - 1-dose 75+ series) 2036 Colonoscopy through age 75 Discontinued 07/25 (Completed outside of [facility]) Hepatitis C screening for age 18-79 Completed 04/01/2020 HIV for age 15-65 Completed 05/24/2022 Hepatitis B series for 19+ Aged Out N o longer eligible based on patient's age to complete this topic Medical Devices Implanted Type Area Scrap Collector Device Identifier Shelf Expiration Date Model / Serial / Lot Cement Simplex W/ Tobramycin - [id number] Implanted:Qty: 2 on 01/15/2015 by Shankar Persaud MD at [facility] Left: Knee D-VANNESSA 01/26/2016 [id number] / / [id number] - [id number] Implanted:Qty: 1 on 01/15/2015 by Shankar Persaud MD at [facility] Left: Knee [employer] 06/25/2024 [id number] / / [id number] Description:Mark Nonporou s Tibial Baseplate [id number] - [id number] Implanted:Qty: 1 on 01/15/2015 by Shankar Persaud MD at [facility] Left: Knee [employer] 05/25/2024 [id number] / / [id number] Description:Cha II Resur facing Patellar Component [id number] - [id number] Implanted:Qty: 1 on 01/15/2015 by Shankar Persaud MD at [facility] Left: Knee [employer] 12/26/2023 [id number] / / [id number] Description:Cruciate Retaini ng Cindyney II CR Oxinium Femoral Component [id number] - [id number] Implanted:Qty: 1 on 01/15/2015 by Shankar Persaud MD at [facility] Left: Knee [employer] 07/26/2023 [id number] / / [id number] Description:Journay II CR, X LPE A/P 56mm M/L 81mm articular insert 1/2 Tibial Augment And Screws Cemented Implanted:Qty: 1 on 09/07/2016 by José Parekh MD at [facility] Left: Knee [employer] 03/30/2020 / / [id number] 1/2 Tibial Augment And Screws Cemented Implanted:Qty: 1 on 09/07/2016 by José Parekh MD at [facility] Left: Knee [employer] 03/30/2020 / / [id number] Stem Extension Straight Femoral And Tibial Cemented Implanted:Qty: 1 on 09/07/2016 by José Parekh MD at [facility] Left: Knee [employer] 03/29/2020 / / [id number] Stem Extension Straight And Tibial Cemented Implanted:Qty: 1 on 09/07/2016 by José Parekh MD at [facility] Left: Knee [employer] 07/12/2021 / / [id number] Femoral Component And Screw Constrained Condylar Cemented Implanted:Qty: 1 on 09/07/2016 by José Parekh MD at [facility] Left: Knee [employer] 12/14/2020 / / [id number] Femoral Augment And Screw Implanted:Qty: 1 on 09/07/2016 by José Parekh MD at [facility] Left: Knee [employer] 03/23/2020 / / [id number] Femoral Augment And Screw Posterior Cemented Implanted:Qty: 1 on 09/07/2016 by José Parekh MD at [facility] Left: Knee [employer] 03/23/2020 / / [id number] Femoral Aug Block And Screw Distal Cemented Implanted:Qty: 1 on 09/07/2016 by José Parekh MD at [facility] Left: Knee [employer] 07/23/2021 / / [id number] Femoral Aug Block And Screw Implanted:Qty: 1 on 09/07/2016 by José Parekh MD at [facility] Left: Knee [employer] 06/03/2020 / / [id number] Tibial Insert And Screw Constrained Condylar Implanted:Qty: 1 on 09/07/2016 by José Parekh MD at [facility] Left: Knee [employer] 04/04/2023 / / [id number] Simplex P Bone Cement Radiopaque Implanted:Qty: 1 on 09/07/2016 by José Parekh MD at [facility] Left: Knee [employer] 03/27/2018 / / [id number] Peg Patella Cemented Implanted:Qty: 1 on 09/07/2016 by José Parekh MD at [facility] Left: Knee [employer] 07/19/2021 / / [id number] Simplex P Bone Cement Radiopaque Implanted:Qty: 2 on 09/07/2016 by José Parekh MD at [facility] Left: Knee [employer] 05/25/2018 / / [id number] Simplex P Bone Cement Radiopaque Implanted:Qty: 2 on 09/07/2016 by José Parekh MD at [facility] Left: Knee [employer] 11/25/2018 / / [id number] Tibial Cone Metaphyseal Implanted:Qty: 1 on 09/07/2016 by José Parekh MD at [facility] Left: Knee [employer] 05/22/2026 / / [id number] Tibial Tray Cemented Implanted:Qty: 1 on 09/07/2016 by José Parekh MD at [facility] Left: Knee [employer] 05/26/2026 / / [id number] Explanted Type Area Scrap Collector Device Identifier Shelf Expiration Date Model / Serial / Lot Tibial Insert And Screw Constrained Condylar Implanted:Qty: 1 Explanted:Qty: 1 on 09/07/[address] [facility] Left: Knee [employer] 04/04/2023 / / [id number] Procedures Procedure Name Priority Date/Time Associated Diagnosis Comments ECHO TTE COMPLETE WO CONTRAST Routine 09/21/2024 1:40 PM CDT Cardiac murmur, unspecified LC HIV-1/O/2, 4TH GENERATION Routine 05/24/2022 9:44 AM HEEL BLACKER Screening for HIV (human immunodeficiency virus) LC LIPID PANEL AND CHOL/HDL RATIO Routine 05/24/2022 9:44 AM HEEL BLACKER Lipid screening ANTI HCV Routine 04/01/2020 12:01 PM HEEL BLACKER Encounter for hepatitis C screening test for [...] Tech: DEXTER Referring MD: DULCE REMY Site: [facility] Reading Location: Mobile-OP Patient Location: [...] . This study was interpreted by an [facility] accredited facility. CC: [facility] ([facility]. Final Procedure Note Wan Sneed MD - 09/21/2024 ECHOCARDIOGRAM GROVER BENITEZ : 1960 64 years Study Date: 09/21/2024 12:52:49 PM Gender: M BP: 132/69 mmHg Height: 196.00 cm BSA: 2.31 m Weight: 98.00 kg Tech: [facility] Referring MD: DULCE REMY Site: [facility] Reading Location: Mobile-OP Patient Location: [...] interpreted by an [facility] accredited facility. CC: [facility] ([facility]) [facility]. Final Dulce Remy HAND SURGEON ECHO ORD F inal Result * (ABNORMAL) LC LIPID PANEL AND CHOL/HDL RATIO (05/24/2022 9:44 AM HEEL BLACKER) [facility] Cholesterol, Total 216(H) 100 - 199 mg/dL 05/26/2022 12:08 PM HEEL BLACKER [facility] ([facility]) Triglycerides 111 0 - 149 mg/dL 05/26/2022 12:08 PM [facility] HDL Cholesterol 63 >39 mg/dL 12:08 PM [facility]ER [facility] VLDL Cholesterol Shashi 20 5 - 40 mg/dL 05/26/2022 12:[address] [facility] ([facility]) LDL Chol Calc ([facility]) 133(H) 0 - 99 mg/dL 05/26/2022 12:08 PM [facility] ([facility]) T. Chol/HDL Ratio 3.4 0.0 - 5.0 ratio 05/26/2022 12:08 PM [facility] ([facility]) Comment: T. Chol/HDL Ratio Men Women 1/2 Avg.Risk 3.4 3.3 Avg.Risk 5.0 4.4 2X Avg.Risk 9.6 7.1 3X Avg.Risk 23.4 11.0 Blood BLOOD SPECIMEN / Unknown Venipuncture / Unknown 05/24/2022 9:44 AM HEEL BLACKER 05/24/2022 9:46 AM [facility] TEST[facility] (CET) - 05/26/2022 12:08 PM HEEL BLACKER Performed at: [address] [place] [id number] Emergency Medicine Specialist: Rakesh Milligan MD, Phone: [phone] Carla Heller NP SEND OUTS Final Result [facility] ([facility]ET) [address] [place] [address], * HIV-1/O/2, 4TH GENERATION (05/24/2022 9:44 AM HEEL BLACKER) HIV Scr 4th Gen Non Reactive Non Reactive 05/26/2022 2:08 PM [facility] ([facility]) Comment: HIV Negative HIV-1/HIV-2 antibodies and HIV-1 p24 antigen were NOT detected. There is no laboratory evidence of HIV infection. Blood BLOOD SPECIMEN / Unknown Venipuncture / Unknown 05/24/2022 9:44 AM HEEL BLACKER 05/24/2022 9:46 AM [facility] (CET) - 05/26/2022 2:08 PM HEEL BLACKER Performed at: 01 - [facility] [id number] Emergency Medicine Specialist: Rakesh Milligan MD, Phone: [phone] Carla Heller NP LABORATORY Final Result [facility] ([facility]) [facility] [place] [address], * ANTI HCV (04/01/2020 12:01 PM HEEL BLACKER) HEPATITIS C ANTIBODY Non-React laura Non-React laura 04/01/2020 9:01 PM HEEL BLACKER [facility] Comment:Antibodies to HCV no t detected; does not exclude the possibility of exposure to HCV. Blood BLOOD SPECIMEN / Unknown Venipuncture / Unknown 04/01/2020 12:01 PM HEEL BLACKER 04/01/2020 12:04 PM HEEL BLACKER Carla Heller HAND SURGEON SEND OUTS Final Result [facility] 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
--- NOTE | 2024-10-23 12:16 | CRLHL7_ITS ---
For Patients: As a result of the Century Cures Act, medical imaging exams and procedure reports are released immediately into your electronic medical record. You may view this report before your referring provider. If you have questions, please contact your health care provider. INDICATION: RT SIDED ABD PAIN. HX OF CROHNS TECHNIQUE: CT of the abdomen and pelvis was obtained with 103 mL of Isovue 370 intravenous contrast. Please note that all CT scans at this facility use dose modulation, iterative reconstruction, and/or weight-based dosing when appropriate to reduce radiation dose to as low as reasonably achievable. COMPARISON: None. FINDINGS: Lower thorax: Normal. Liver and biliary tree: Moderate hepatic steatosis. Gallbladder: Status post cholecystectomy. Spleen: Normal. Pancreas: Normal. Adrenal glands: Normal. Kidneys and ureters: No hydronephrosis or obstructing renal calculi. Gastrointestinal tract: Postsurgical changes from colectomy with associated bowel staple line in the pelvis. Moderate narrowing is seen at the rectum (2/132). No evidence of bowel obstruction. Peritoneal cavity: Normal. Bladder: Mild wall thickening. Pelvic organs: Normal. Vasculature: Mild calcification. Lymph nodes: Normal. Abdominal wall: Small fat containing ventral hernias. Musculoskeletal: Wzle-hw-ofjcwelg degenerative changes of the visualized spine and bilateral hips. IMPRESSION: 1. Moderate hepatic steatosis. 2. Postsurgical changes from colectomy with associated bowel staple line in the pelvis. Moderate narrowing is seen at the rectum. Consider correlation with endoscopy to evaluate for underlying mass lesion. 3. Mild urinary bladder wall thickening. Consider correlation with urinalysis to assess for infection. Please note that all CT scans at this facility use dose modulation, iterative reconstruction, and/or weight-based dosing when appropriate to reduce radiation dose to as low as reasonably achievable. Dictated by Wan Calvin MD @ 10/23/2024 1:32:07 PM (Electronically Signed)
--- NOTE | 2024-10-23 12:18 | ED_ITS ---
HPI - Abdominal Pain General Chief Complaint: Abdominal Pain Stated Complaint: abdominal pain Time Seen by Provider: 10/23/24 11:38 History of Present Illness HPI narrative: This 64-year-old male comes in reporting abdominal pain this started almost 2 weeks ago and has progressively worsened since then. Today is much worse and located in the right abdomen. He states that the pain is significantly worse when trying to bend forward and put his shoes on or tie his shoes. He has decre ased appetite. He has a history of Crohn's disease and is not taking any medications to treat this. Is not report any fevers, vomiting, or diarrhea. He does not have any history of kidney stones. Related Data Previous Rx's ?Medication ?Instructions ?Recorded albuterol sulfate 90 mcg/actuation 1 inh inhalation ON CE PRN 06/06/24 aerosol inhaler shortness of breath or wheez ing #8.5 grams sertraline 100 mg tablet 100 mg PO QDAY 90 days #90 t abs 06/06/24 betamethasone dipropionate 0.05 % 1 applic topical QDA Y PRN skin 08/10/24 topical ointment irritation #45 grams buspirone 10 mg tablet 10 mg PO BID 90 days #180 ta bs 08/10/24 hydrocodone 5 mg-acetaminophen 325 1 tab PO Q4-6H PRN pain #10 tabs 10/23/24 mg tablet ketorolac 10 mg tablet 10 mg PO TID 5 days #15 tabs 10/23/24 methylprednisolone 4 mg tablets in See Rx Instructions PO .COMPLEX 10/23/24 a dose pack (Medrol (Leeroy)) #21 ea Allergies Allergy/AdvReac Type Severity Reaction Status Date / Time NSAIDS (Non-Steroidal AdvReac Unknown Gastrointestinal Verified 10/23/24 13:10 Anti-Inflamma Upset Review of Systems Status of ROS Reports: 10 or more systems reviewed and unremarkable except as noted in History and below Narrative Constitutional: No fevers, no weight gain or loss. Eyes: No discharge. No vision changes. HENT: No congestion, no sore throat, no ear pain. Cardiovascular: No chest pain, no palpitations. Respiratory: No shortness of breath, no wheezes, no cough. Gastrointestinal: No vomiting, no diarrhea. Abdominal pain as described above. Genitourinary: No dysuria, no hematuria. Musculoskeletal: Normal range of motion. Skin: No rashes, no pruritis. Neurological: No dizziness, weakness, sensory change, speech change. Endo/Heme/Allergies: No bruising or bleeding. No polydipsia. Pysch: no suicidality, no anxiety, no insomnia. All other systems reviewed and are negative. 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 - Idiopathic aseptic necrosis of unspecified ankle (ICD-10) Surgical History History of hand surgery ?Z98.890 - Other specified postprocedural states (ICD-10) S/P cubital tunnel release (12/29/22) ?Z98.890 - Other specified postprocedural states (ICD-10) History of laparoscopy (2000) ?Z98.890 - Other specified postprocedural states (ICD-10) History of ileostomy ?Z98.890 - Other specified postprocedural states (ICD-10) History of colostomy History of carpal tunnel release of both wrists ?Z98.890 - Other specified postprocedural states (ICD-10) History of total bilateral knee replacement ?Z96.653 - Presence of artificial knee joint, bilateral (ICD-10) Family History Mother Osteoarthritis Father Osteoarthritis High blood pressure Paternal Grandmother Uterine cancer Paternal Grandfather Diabetes Social History Narrative: to Sallie. 2 children. Works at [employer]. Former smoker. Smoking Status: Never smoker Exam Narrative: Exam Narrative: Constitutional: Well-developed, well-nourished, no acute distress. HEENT: Normocephalic, atraumatic. Neck: Normal range of motion. Nontender. Supple. Heart: Regular. No murmurs. Normal rate. Intact distal pulses. Lungs: Clear to auscultation. No chest discomfort. No wheezes, rhonchi, or rales. Abdomen: Normal bowel sounds. Right-sided abdominal pain. No rebound tenderness. Genitalia: Deferred. Back: No midline tenderness. Normal range of motion. Extremities: Normal range of motion. No injury. Skin: Intact. No rash. Warm. No erythema or pallor. Neurologic: No altered sensation. No weakness. Alert and oriented. Psychiatric: No suicidality. No anxiety or depression. No insomnia. Nursing notes and vitals signs are reviewed. Const: Vital Signs, click to edit/add: Vital Signs - 24 hr 10/23/24 11:48 10/23/24 13:37 10/23/24 13:38 Temperature 98.6 F Pulse Rate 56 L 57 L Pulse Rate [Pulse Oximeter] 64 Respiratory Rate 22 16 Blood Pressure 137/77 Blood Pressure [Ri ght Upper Arm] 124/70 Pulse Oximetry 99 97 99 Oxygen Delivery Me thod Room Air 10/23/24 13:39 10/23/24 13:42 10/23/24 13:45 Temperature Pulse Rate 56 L 56 L 56 L Pulse Rate [Pulse Oximeter] Respiratory Rate 16 Blood Pressure 122/65 Blood Pressure [Ri ght Upper Arm] Pulse Oximetry 98 95 94 Oxygen Delivery Me thod Course Vital Signs Vital signs: Initial Vital Signs Temperature 98.6 F 10/23/24 11:48 Temperature Source Temporal Artery Scan 10/23/24 11:48 Pulse Rate 64 10/23/24 11:48 Respiratory Rate 22 10/23/24 11:48 Blood Pressure 124/70 10/23/24 11:48 Blood Pressure Mean 88 10/23/24 11:48 Pulse Oximetry 99 10/23/24 11:48 Oxygen Delivery Method Room Air 10/23/24 11:48 Vital Signs Temperature 98.6 F 10/23/24 11:48 Pulse Rate 64 10/23/24 11:48 Respiratory Rate 22 10/23/24 11:48 Blood Pressure 124/70 10/23/24 11:48 Pulse Oximetry 99 10/23/24 11:48 Oxygen Delivery Method Room Air 10/23/24 11:48 Temperature 98.6 F 10/23/24 11:48 Pulse Rate 56 L 10/23/24 13:45 Respiratory Rate 16 10/23/24 13:42 Blood Pressure 122/65 10/23/24 13:42 Pulse Oximetry 94 10/23/24 13:45 Oxygen Delivery Method Room Air 10/23/24 11:48 Medications Administered Medications: Discontinued Medications Generic Name Dose Route Start Last Admin Trade Name Lisa PRN Reason Stop Dose Admin Hydromorphone HCl 0.5 mg 10/23/24 13:24 10/23/24 13:32 Hydromorphone 0.5 Mg/0.5 Ml Inj IVP 10/23/24 13:25 0.5 mg ONCE ONE Administration Sodium Chloride 500 mls @ 500 mls/hr 10/23/24 12:15 10/23/24 13:53 0.9 % Sodium Chloride 500 Ml IV 10/23/24 13:14 Infused .Q1H ONE Infusion Ketorolac Tromethamine 30 mg 10/23/24 12:15 10/23/24 12:45 Ketorolac 30 Mg/Ml Inj IVP 10/23/24 12:16 30 mg ONCE ONE Administration Methylprednisolone Sodium Succinate 125 mg 10/23/24 12:15 10/23/24 13:13 Methylprednisolone Sod Succ 62.5 Mg/Ml (125) IVP 10/23/24 12:16 125 mg ONCE ONE Administration MDM - Abdominal Pain MDM Narrative Medical decision making narrative: This patient comes in reporting various aches and pains but has rather distinct in severe pain now in his abdomen on the right side. He does have a history of Crohn's disease an autoimmune condition for which she states that he was on prednisone for many years. He has not been on any anti-inflammatory medicines for a good while but is suspicious of a flare up of these conditions again. An IV was established and labs are acquired which show a normal findings except for a notable increase in his erythrocyte sedimentation rate to 65. CT is obtained of the abdomen and pelvis and shows no findings that would explain his symptoms. The patient did receive an IV dose of Solu-Medrol 125 mg and 30 mg of Toradol initially. He was continuing to have pain and then received Dilaudid 0.5 mg intravenously. The patient is okay to be discharged home. I advised him to follow-up with his primary physician. I did provide prescription for Medrol Dosepak, Toradol, and Thayer. Lab Data Labs: Lab Results 10/23/24 10/23/24 10/23/24 Range/Units 12:28 12:35 13:10 WBC 10.03 (4.50-11.00) K/uL RBC 4.49 (4.30-5.90) m/uL Hgb 13.9 (13.5-17.5) gm/dL Hct 41.7 (37.0-53.0) % MCV 93 (80-100) fL MCH 31 (26-34) pg MCHC 33 (32-36) gm/dL RDW Coeff of Anahi 11.8 (11.5-15.5) % Plt Count 243 (140-440) K/uL Neut % (Auto) 73.1 H (42.0-72.0) % Lymph % (Auto) 14.5 L (20-44) % [place] % (Auto) 10.4 (0.0-11.0) % Eos % (Auto) 1.3 (0.0-7.0) % Baso % (Auto) 0.3 (0.0-3.0) % Neut # (Auto) 7.30 H (1.7-7.0) K/uL Lymph # (Auto) 1.50 (0.90-2.90) K/uL [place] # (Auto) 1.00 H (0.00-0.90) K/UL Eos # (Auto) 0.13 (0.00-0.50) K/uL Baso # (Auto) 0.03 (0.00-0.30) K/uL Abs Immat Gran (auto) 0.04 (0.00-0.30) K/uL Imm/Tot Granulo (auto) 0.4 % ESR 65 H (2-15) mm/hr Sodium 135 (135-149) mmol/L Potassium 4.0 (3.6-5.1) mmol/L Chloride 106 (96-114) mmol/L Carbon Dioxide 22 (20-32) mmol/L Anion Gap 7 (7-15) mEq/L BUN 14 (7-30) mg/dL Creatinine 0.7 (0.5-1.5) mg/dL Estimated Creat Clear 92.83 Estimated GFR 104 ml/min Glucose 105 (60-115) mg/dL Calcium 9.1 (8.4-10.6) mg/dL C-Reactive Protein 9.0 H (0.5-1.0) mg/dL POC Creatinine 0.8 (0.6-1.3) mg/dl Imaging Data CT scan - abdomen: Radiologist's impression: 1. Moderate hepatic steatosis. 2. Postsurgical changes from colectomy with associated bowel staple line in the pelvis. Moderate narrowing is seen at the rectum. Consider correlation with endoscopy to evaluate for underlying mass lesion. 3. Mild urinary bladder wall thickening. Consider correlation with urinalysis to assess for infection. Discharge Plan Discharge Clinical Impression: Crohn's disease Qualifiers: Gastrointestinal tract location: small and large intestine Digestive disease complication type: without complication Qualified Code(s): K50.80 - Crohn's disease of both small and large intestine without complications Patient Disposition: Home, Self-Care Condition: Improved Additional Instructions: Take medication as prescribed. Follow up with MD for ongoing management. Return if worsening. Prescriptions: New hydrocodone-acetaminophen 5-325 mg tablet 1 tab PO Q4-6H PRN (Reason: pain) Qty: 10 0RF ketorolac 10 mg tablet 10 mg PO TID 5 Days Qty: 15 0RF methylprednisolone [Medrol (Leeroy)] 4 mg tablets,dose pack See Rx Instructions .ROUTE .COMPLEX Qty: 21 0RF Rx Instructions: orally per package directions No Action albuterol sulfate 90 mcg/actuation HFA aerosol inhaler 1 inh inhalation ONCE PRN (Reason: shortness of breath or wheezing) Qty: 8.5 2RF sertraline 100 mg tablet 100 mg PO QDAY 90 Days Qty: 90 3RF buspirone 10 mg tablet 10 mg PO BID 90 Days Qty: 180 3RF betamethasone dipropionate 0.05 % ointment 1 applic topical QDAY PRN (Reason: skin irritation) Qty: 45 2RF Follow Up/Referrals: Dulce Remy, LOGGING SUPERINTENDENT [Primary Care Provider, Family Practice] Stand Alone Forms: [employer] Info Instructions
--- OUTSIDE RECORDS SUMMARY | 2024-10-23 12:24 | XMS_ITS | Clinical Summary ---
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 Immunizations No information available. Advance Directives No information available.
[2024-10-23 12:46] LABS: Hematocrit 41.7 % (37.0-53.0); Hemoglobin* 13.9 gm/dL (13.5-17.5); Immature Granulocytes Abs Auto 0.04 K/uL (0.00-0.30); Immature Granulocytes Pct Auto 0.4 %; Mean Corpuscular HGB Conc 33 gm/dL (32-36); Mean Corpuscular Hemoglobin 31 pg (26-34); Mean Corpuscular Volume 93 fL (80-100); RDW Coefficient of Variation % 11.8 % (11.5-15.5); Red Blood Count 4.49 m/uL (4.30-5.90); White Blood Count* 10.03 K/uL (4.50-11.00)
[2024-10-23 12:48] LABS: Creatinine, Point-of-Care* 0.8 mg/dl (0.6-1.3)
[2024-10-23 12:50] LABS: Lymphocytes Absolute Auto 1.50 K/uL (0.90-2.90)
[2024-10-23 12:51] LABS: Slide Review Reflex No
[2024-10-23] MEDS: METHYLPREDNISOLONE SOD SUCC 62.5 MG/ML (125) 125 MG IVP (13:13)
[2024-10-23] MEDS: 0.9 % SODIUM CHLORIDE 500 ML 500 ML IV (13:13)
[2024-10-23 13:57] LABS: Erythrocyte SedimentationRate* 65 mm/hr (2-15)
[2024-10-23 14:07] LABS: Chloride* 106 mmol/L (96-114); Potassium* 4.0 mmol/L (3.6-5.1); Sodium* 135 mmol/L (135-149)
[2024-10-23 14:10] LABS: Blood Urea Nitrogen* 14 mg/dL (7-30); Creatinine* 0.7 mg/dL (0.5-1.5); Est. Creatinine Clearance* 92.83; Estimated Glomerular Filt Rate 104 ml/min
[2024-10-23 14:11] LABS: Anion Gap 7 mEq/L (7-15); Calcium* 9.1 mg/dL (8.4-10.6); Carbon Dioxide* 22 mmol/L (20-32); Glucose* 105 mg/dL (60-115)
== END 2024-10-23 14:51 | disposition home or self-care (01) ==
PROVIDERS: Emergency Provider Emergency Medicine Emergency Medical Services; PCP Registered Nurse
DX: K50.90 Crohn's disease, unspecified, without complications (principal); R63.0 Anorexia
CPT/HCPCS: 36415; 74177; 80048; 82565; 85025; 85651; 86140; 94761; 99284; 99285; J1171; J1885; J2919; J7030; Q9967

== ENCOUNTER 2024-11-06 10:14 | Outpatient (CLI) | payer OTHER, SELFPAY | END 2024-11-06 10:15 | disposition home or self-care (01) | PROVIDERS: PCP Internal Medicine; Visit Provider Internal Medicine | DX: M25.50 Pain in unspecified joint (principal) | CPT/HCPCS: 82550; 86038; 86140; 86200; 86431 ==